=== PATIENT | female | born 1990 | race Hispanic/Latino ===

== ENCOUNTER 2017-06-11 02:26 | Emergency (ER) | payer BC ==
[2017-06-11 04:32] LABS: Basophils % (Auto) 0.5 % (0.0-1.8); Eosinophils % (Auto) 4.3 % (0.0-4.3); Hemoglobin 13.2 gm/dl (10.1-14.3); Mean Corpuscular HGB Conc 34 % (30-34); Mean Corpuscular Hemoglobin 31 pg (28-32); Mean Corpuscular Volume 93 fl (79-97); Platelet Count 159 K/mm3 (140-440); Red Blood Count 4.22 M/mm3 (3.65-5.03); Red Cell Distribution Width 12.8 % (13.2-15.2); White Blood Count 6.7 K/mm3 (4.5-11.0)
[2017-06-11 04:55] LABS: Alanine Aminotransferase 11 units/L (7-56); Albumin 4.1 g/dL (3.9-5); Albumin/Globulin Ratio 1.5 %; Alkaline Phosphatase 28 units/L (35-129); Anion Gap 19 mmol/L; Blood Urea Nitrogen 7 mg/dL (7-17); Calcium 9.1 mg/dL (8.4-10.2); Carbon Dioxide 17 mmol/L (22-30); Chloride 102.4 mmol/L (98-107); Glucose 82 mg/dL (65-100); Lipase 26 units/L (13-60); Potassium 3.8 mmol/L (3.6-5.0); Sodium 135 mmol/L (137-145); Total Protein 6.8 g/dL (6.3-8.2)
[2017-06-11 07:27] LABS: Bacteria,Urine 1+ /HPF (Negative); Bilirubin,Urine NEG (Negative); Blood,Urine NEG (Negative); Ketones,Urine TR mg/dL (Negative); Leukocyte Esterase,Urine NEG (Negative); Mucus,Urine FEW /HPF; Nitrite,Urine NEG (Negative); Protein,Urine <15 mg/dL mg/dL (Negative); Urobilinogen,Urine < 2.0 mg/dL (<2.0)
[2017-06-11] MEDS ORDERED: ZOFRAN ONE (09:10)
[2017-06-11] MEDS ORDERED: ZOFRAN IV ONE (09:38)
[2017-06-11] MEDS ORDERED: NACL 0.9% 1000 ML 1,000 ML IV ONE (10:35)
--- NOTE | 2017-06-11 11:48 | Emergency Department Report ---
ED Female HPI - General Chief complaint: Nausea/Vomiting/Diarrhea Stated complaint: NAUSEA/VOMITING Time Seen by Provider: 06/11/17 10:33 Source: patient Mode of arrival: Ambulatory Limitations: No Limitations - History of Present Illness Initial comments: Patient does not complain of abdominal pain. She does have some discomfort associated with vomiting. He vomiting this morning. She has had recurrent hyperemesis. She has an appointment to see an OB doctor in [place]. She did show me a picture of her ultrasound which showed a intrauterine pole with heart rate in the 130s as per her report. Ultrasound does show a pole to my interpretation. This was done at 6 weeks whereas the patient is not normally weights. She's had 1 prior miscarriage but no live births. MD Complaint: other -: hour(s) Location: other (only discomfort associated with vomiting) Quality: other Improves with: none Are you Now?: Yes - Related Data Previous Rx's Medication Instructions Recorded Last Taken Type Doxylamine/Pyridoxine HCl 1 each PO QHS #10 tablet. 06/11/17 Unknown Rx [Caroline Moreno 10-10 mg Tablet] Nitrofurantoin [place]/M-Cryst 100 mg PO Q12HR #7 capsule 06/11/17 Unknown Rx [Macrobid CAP] Allergies Allergy/AdvReac Type Severity Reaction Status Date / Time amoxicillin Allergy Rash Verified 06/11/17 03:47 lamotrigine [From Lamictal] Allergy Rash Verified 06/11/17 03:47 ED Review of Systems ROS: Stated complaint: NAUSEA/VOMITING Other details as noted in HPI Constitutional: denies: chills, fever Eyes: denies: eye pain, eye discharge, vision change ENT: denies: ear pain, throat pain Respiratory: denies: cough, shortness of breath, wheezing Cardiovascular: denies: chest pain, palpitations Endocrine: no symptoms reported Gastrointestinal: as per HPI, nausea, vomiting. denies: diarrhea Genitourinary: denies: urgency, dysuria, discharge Musculoskeletal: denies: back pain, joint swelling, arthralgia Skin: denies: rash, lesions Neurological: denies: headache, weakness, paresthesias Psychiatric: denies: anxiety, depression Hematological/Lymphatic: denies: easy bleeding, easy bruising ED Past Medical Hx - Past Medical History Previous Medical History?: Yes Additional medical history: Patient states she is 9 weeks , Gallstones, Esopagitis - Surgical History Past Surgical History?: Yes Additional Surgical History: Brain surgery 2008 - Social History Smoking Status: Never Smoker - Medications Home Medications: Home Medications Medication Instructions Recorded Confirmed Last Taken Type Doxylamine/Pyridoxine HCl 1 each PO QHS #10 tablet. 06/11/17 Unknown Rx [Diclegis Dr 10-10 mg Tablet] Nitrofurantoin [place]/M-Cryst 100 mg PO Q12HR #7 capsule 06/11/17 Unknown Rx [Macrobid CAP] ED Physical Exam - General Limitations: No Limitations General appearance: alert, in no apparent distress - Head Head exam: Present: atraumatic, normocephalic - Eye Eye exam: Present: normal appearance. Absent: scleral icterus - ENT ENT exam: Present: mucous membranes moist - Neck Neck exam: Present: normal inspection - Respiratory Respiratory exam: Present: normal lung sounds bilaterally. Absent: respiratory distress - Cardiovascular Cardiovascular Exam: Present: regular rate, normal rhythm. Absent: systolic murmur, diastolic murmur, rubs, gallop - GI/Abdominal GI/Abdominal exam: Present: soft, normal bowel sounds. Absent: distended, tenderness, guarding, rebound, rigid - Extremities Exam Extremities exam: Present: normal inspection - Back Exam Back exam: Present: normal inspection. Absent: CVA tenderness (R), CVA tenderness (L) - Neurological Exam Neurological exam: Present: alert, oriented X3, CN II-XII intact. Absent: motor sensory deficit - Psychiatric Psychiatric exam: Present: normal affect, normal mood - Skin Skin exam: Present: warm, dry, intact, normal color. Absent: rash ED Course Vital Signs 06/11/17 06/11/17 06/11/17 03:15 03:52 08:54 Temperature 98.3 F 98.3 F Pulse Rate 77 77 81 Respiratory 18 18 Rate Blood Pressure 103/65 103/65 O2 Sat by Pulse 99 99 Oximetry 06/11/17 06/11/17 06/11/17 09:00 09:15 09:30 Temperature Pulse Rate 87 97 H 70 Respiratory 14 17 12 Rate Blood Pressure 130/55 114/73 100/61 O2 Sat by Pulse Oximetry 06/11/17 06/11/17 06/11/17 09:45 10:00 10:15 Temperature Pulse Rate 69 71 69 Respiratory 17 14 20 Rate Blood Pressure 95/47 87/47 88/47 O2 Sat by Pulse Oximetry 06/11/17 10:30 Temperature Pulse Rate 67 Respiratory 20 Rate Blood Pressure 87/48 O2 Sat by Pulse Oximetry ED Medical Decision Making - Lab Data Result diagrams: 06/11/17 04:08 06/11/17 04:08 Laboratory Results - last 24 hr 06/11/17 06/11/17 06/11/17 04:08 04:08 04:08 WBC 6.7 RBC 4.22 Hgb 13.2 Hct 39.0 MCV 93 MCH 31 MCHC 34 RDW 12.8 L Plt Count 159 Lymph % (Auto) 17.0 [place] % (Auto) 7.5 H Eos % (Auto) 4.3 Baso % (Auto) 0.5 Lymph # 1.1 L [place] # 0.5 Eos # 0.3 Baso # 0.0 Seg Neutrophils % 70.7 H Seg Neutrophils # 4.7 Sodium 135 L Potassium 3.8 Chloride 102.4 Carbon Dioxide 17 L Anion Gap 19 BUN 7 Creatinine 0.4 L Estimated GFR > 60 BUN/Creatinine Ratio 17.50 Glucose 82 Calcium 9.1 Total Bilirubin 0.50 AST 14 ALT 11 Alkaline Phosphatase 28 L Total Protein 6.8 Albumin 4.1 Albumin/Globulin Ratio 1.5 Lipase 26 HCG, Quant [id number] H Urine Color Urine Turbidity Urine pH Ur Specific [place] Urine Protein Urine Glucose (UA) Urine Ketones Urine Blood Urine Nitrite Urine Bilirubin Urine Urobilinogen Ur Leukocyte Esterase Urine WBC (Auto) Urine RBC (Auto) U Epithel Cells (Auto) Urine Bacteria (Auto) Amorphous Crystals Urine Mucus 06/11/17 07:09 WBC RBC Hgb Hct MCV MCH MCHC RDW Plt Count Lymph % (Auto) [place] % (Auto) Eos % (Auto) Baso % (Auto) Lymph # [place] # Eos # Baso # Seg Neutrophils % Seg Neutrophils # Sodium Potassium Chloride Carbon Dioxide Anion Gap BUN Creatinine Estimated GFR BUN/Creatinine Ratio Glucose Calcium Total Bilirubin AST ALT Alkaline Phosphatase Total Protein Albumin Albumin/Globulin Ratio Lipase HCG, Quant Urine Color Yellow Urine Turbidity Clear Urine pH 7.0 Ur Specific [place] 1.016 Urine Protein <15 mg/dl Urine Glucose (UA) Neg Urine Ketones Tr Urine Blood Neg Urine Nitrite Neg Urine Bilirubin Neg Urine Urobilinogen < 2.0 Ur Leukocyte Esterase Neg Urine WBC (Auto) 7.0 H Urine RBC (Auto) 3.0 U Epithel Cells (Auto) 8.0 Urine Bacteria (Auto) 1+ Amorphous Crystals 1+ Urine Mucus Few Critical care attestation.: If time is entered above; I have spent that time in minutes in the direct care of this critically ill patient, excluding procedure time. ED Disposition Clinical Impression: Hyperemesis gravidarum Disposition: - TO HOME OR SELFCARE Is pt being admited?: No Does the pt Need Aspirin: No Condition: Stable Instructions: Hyperemesis Gravidarum (ED), Urinary Tract Infection in Women (ED ) Additional Instructions: Urine test is not totally diagnostic of a urine infection. However we'll place him on a daily days of antibiotic Macrobid just in case. Medicine for vomiting is also prescribed. See your script worker in [place] as you planned this week. Return any acute change or problems. Prescriptions: Doxylamine/Pyridoxine HCl [Caroline Moreno 10-10 mg Tablet] 1 each PO QHS #10 tablet. Nitrofurantoin [place]/M-Cryst [Macrobid CAP] 100 mg PO Q12HR #7 capsule Referrals: PRIMARY CARE, [Primary Care Provider] - 3-5 Days Forms: Work/School Release Form(ED) Time of Disposition: 12:06
[2017-06-11 12:45] VITALS: BP 92/51
== END 2017-06-11 12:45 | disposition home or self-care (01) ==
LOC: ED 02:26
DX: O21.0 Mild hyperemesis gravidarum (principal); Z3A.09 9 weeks gestation of pregnancy; Z88.1 Allergy status to other antibiotic agents; Z88.8 Allergy status to other drugs, medicaments and biological substances
CPT/HCPCS: 36415; 80053; 81001; 83690; 84702; 85025; 87086; 96361; 96374; 99283; J2405; J7030